=== PATIENT | female | born 1985 | race Caucasian/White ===

== ENCOUNTER 2016-07-20 22:03 | Emergency (ER) | payer OTHER ==
[2016-07-20] MEDS ORDERED: METHOCARBAMOL 500 MG TAB As Ordered ONE (22:49)
[2016-07-20] MEDS ORDERED: IBUPROFEN 600 MG TAB As Ordered ONE (22:49)
[2016-07-20] MEDS ORDERED: NORCO 5/325MG TABLET (BULK) As Ordered ONE (22:50)
--- NOTE | 2016-07-20 22:59 | EDDOCDS ---
Physician Documentation [facility] Name: Janina Dao Age: 31 yrs Sex: Female : 1985 Arrival Date: 07/20/2016 Time: 22:03 Bed TR1 Private MD: MARI LEWIS Disposition: 07/20/16 22:53 Discharged to Home/Self Care. Impression: Strain of muscle and tendon of back wall of thorax - left sided . - Condition is Stable. - Discharge Instructions: Back Pain, Adult, Muscle Strain. - Prescriptions for Ibuprofen 600 mg Oral Tablet - take 1 tablet by ORAL route every 6 hours As needed take with food; 30 tablet. Robaxin 500 mg Oral Tablet - take 2 tablet by ORAL route every 6 hours As needed; 40 tablet. - Medication Reconciliation, Local Pharmacy Hours form. - [facility]; When: Call to arrange an appointment; Reason: Recheck today's complaints, Continuance of care. - Problem is new. - Symptoms are unchanged. Historical: - Allergies: control; - Home Meds: 1. none - PMHx: none; - PSHx: dental implant; ; - Social history: Smoking status: Patient states was never smoker of tobacco. No barriers to communication noted, The patient speaks fluent Japanese. - Family history: Not pertinent. - : The pt / caregiver states he / she is not on anticoagulants. Home medication list is obtained from the patient. - Exposure Risk Screening:: None identified. 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 3 in. (160.02 cm) (R); Pain 10/10; 22:05 Body Mass Index 26.04 (66.68 kg, 160.02 cm) ct3 MDM: 22:48 Ibuprofen 600 mg PO once ordered. mo1 22:48 Methocarbamol 1 grams PO once ordered. mo1 22:48 HYDROcodone-acetaminophen 4 pack- 5 mg-325 mg 1 packets PO Per package directions; mo1 Dispense with patient. 1 po q4h prn for pain ordered. 22:57 Financial registration complete. zo Administered Medications: 22:53 Drug: Ibuprofen 600 mg [ibuprofen 600 mg tablet (1 tabs)] Route: PO; keri :53 Drug: Methocarbamol 1 grams [methocarbamol 500 mg tablet (2 tabs)] Route: PO; [facility] 22:53 Drug: HYDROcodone-acetaminophen 4 pack- 1 packets [hydrocodone 5 mg-acetaminophen 325 jmb mg tablet (1 tabs)] {Co-Signature: rs3 (Debbie Siddiqui RN).} Route: PO; Signatures: Kurtis Martinez Rosemary, RN RN rs3 Lawrence Torres PA PA mo1 Manish Laura RN RN jmb Debbie Siddiqui RN rs3 MTDD
--- NOTE | 2016-07-20 22:59 | EDDOCDS ---
Nurse's Notes [facility] Name: Janina Dao Age: 31 yrs Sex: Female : 1985 Arrival Date: 07/20/2016 Time: 22:03 Bed TR1 Private MD: MARI LEWIS Diagnosis: Strain of muscle and tendon of back wall of thorax-left sided Presentation: 07/20 22:11 Presenting complaint: Patient states: lower back muscle spasm since this evening. no rs3 known injury. Acute neurological deficits are not present. Mechanism of Injury: No Mechanism of Injury. Adult Sepsis Screening: The patient does not have new or worsening altered mentation. Patient's respiratory rate is less than 22. Systolic blood pressure is greater than 100. Patient has a qSOFA score of 0- Negative Sepsis Screen. Suicide/Homicide risk assessment- the patient denies having any suicidal and/or homicidal ideations and does not present with any other emotional, behavioral or mental health complaints. 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 Transition of care: patient was not received from another setting of care. 22:11 Acuity: JANNY Level 4 rs3 22:11 Method Of Arrival: Wheelchair rs3 Triage Assessment: 22:13 General: Appears in no apparent distress. Pain: Location: lumbar area. HIV screening NA rs3 for this visit Offered previously. Musculoskeletal: Reports Pain is 8 out of 10 on a pain scale. 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 none - PMHx: none; - PSHx: dental implant; ; - Social history: Smoking status: Patient states was never smoker of tobacco. No barriers to communication noted, The patient speaks fluent Micronesian. - Family history: Not pertinent. - : The pt / caregiver states he / she is not on anticoagulants. Home medication list is obtained from the patient. - Exposure Risk Screening:: None identified. Screenin:56 Screening information is obtained from the patient. Fall risk: No risks identified. jmb Assistance ADL's: requires no assistance with activities of daily living. Abuse/DV Screen: The patient / caregiver reports he/she is: not in a situation that causes fear, pain or injury. Nutritional screening: No deficits noted. Advance Directives: Currently, there is no health care proxy. There is no active DNR order. There is no living will. There is no Power of Hand Counter. home support is adequate. Assessment: 22:56 General: Patient instructed on discharge instructions. Patient asked if there were any jmb questions regarding discharge, patient stated no. Patient signed discharge instructions. Patient discharged in stable condition. . Vital Signs: 22:05 BP 121 / 60; Pulse 82; Resp 18; Temp 96.9(O); Pulse Ox 100% on R/A; Weight 66.68 kg ct3 (R); Height 5 ft. 3 in. (160.02 cm) (R); Pain 10/10; 22:05 Body Mass Index 26.04 (66.68 kg, 160.02 cm) ct3 Vitals: 22:05 Log In Time: July 20, 2016 at 22:02. ct3 ED Course: 22:05 Patient visited by Zee Walton PCA. ct3 22:05 [facility] is Private Physician. ct3 22:05 Patient moved to Waiting ct3 22:06 Patient moved to Pre RCE ct3 22:12 Triage Initiated rs3 22:37 Patient moved to Triage 2 jmb 22:38 Lawrence Torres PA is PHCP. mo1 22:38 Richard Paul DO is Attending Physician. mo1 22:39 Patient visited by Lawrence Torres PA. mo1 22:53 [facility] is Referral Physician. mo1 22:56 The patient / caregiver is instructed regarding the plan of care and ED course. jmb 22:56 No IV's were initiated during this patient's visit. No procedures done that require jmb assistance. 22:57 Patient moved to TR1 kc3 22:58 Patient visited by Lawrence Torres PA. mo1 Administered Medications: 22:53 Drug: Ibuprofen 600 mg [ibuprofen 600 mg tablet (1 tabs)] Route: PO; jmb 22:53 Drug: Methocarbamol 1 grams [methocarbamol 500 mg tablet (2 tabs)] Route: PO; b 22:53 Drug: HYDROcodone-acetaminophen 4 pack- 1 packets [hydrocodone 5 mg-acetaminophen 325 jmb mg tablet (1 tabs)] {Co-Signature: rs3 (Debbie Siddiqui RN).} Route: PO; Order Results: There are currently no results for this order. Outcome: 22:53 Discharge ordered by Provider. mo1 22:56 Discharge Assessment: Patient awake, alert and oriented x 3. No cognitive and/or jmb functional deficits noted. Patient verbalized understanding of disposition instructions. Patient awake and alert. obeys commands, Oriented to person, place and time. Patient verbalized understanding of disposition instructions. Patient has no functional deficits. patient administered narcotics - no. The following High Risk Discharge criteria are identified: None. Discharged to home ambulatory, with significant other. Condition: stable. Discharge instructions given to patient, Instructed on discharge instructions, follow up and referral plans. medication usage, Demonstrated understanding of instructions, medications, Pt was receptive of discharge instructions/ teaching. Prescriptions given X 2. No special radiology studies were completed. Property sent home with patient. 22:57 Patient left the ED. amada Signatures: Debbie Siddiqui,RANDALL RN rs3 Zee Walton, RADIOTELEGRAPH OPERATOR RADIOTELEGRAPH OPERATOR ct3 Lawrence Torres PA PA mo1 Manish Laura RN RN urszulab Ninoska Yañez,RANDALL RN kc3 Debbie Siddiqui RN rs3 MTDD
--- NOTE | 2016-07-22 23:59 | EDDOCDS ---
Physician Documentation [facility] Name: Janina Dao Age: 31 yrs Sex: Female : 1985 Arrival Date: 07/20/2016 Time: 22:03 Bed TR1 Private MD: MARI LEWIS Disposition: 07/20/16 22:53 Discharged to Home/Self Care. Impression: Strain of muscle and tendon of back wall of thorax - left sided . - Condition is Stable. - Discharge Instructions: Back Pain, Adult, Muscle Strain. - Prescriptions for Ibuprofen 600 mg Oral Tablet - take 1 tablet by ORAL route every 6 hours As needed take with food; 30 tablet. Robaxin 500 mg Oral Tablet - take 2 tablet by ORAL route every 6 hours As needed; 40 tablet. - Medication Reconciliation, Local Pharmacy Hours form. - [facility]; When: Call to arrange an appointment; Reason: Recheck today's complaints, Continuance of care. - Problem is new. - Symptoms are unchanged. Historical: - Allergies: control; - Home Meds: 1. none - PMHx: none; - PSHx: dental implant; ; - Social history: Smoking status: Patient states was never smoker of tobacco. No barriers to communication noted, The patient speaks fluent Spanish. - Family history: Not pertinent. - : The pt / caregiver states he / she is not on anticoagulants. Home medication list is obtained from the patient. - Exposure Risk Screening:: None identified. 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 3 in. (160.02 cm) (R); Pain 10/10; 22:05 Body Mass Index 26.04 (66.68 kg, 160.02 cm) ct3 MDM: 22:48 Ibuprofen 600 mg PO once ordered. mo1 22:48 Methocarbamol 1 grams PO once ordered. mo1 22:48 HYDROcodone-acetaminophen 4 pack- 5 mg-325 mg 1 packets PO Per package directions; mo1 Dispense with patient. 1 po q4h prn for pain ordered. 22:57 Financial registration complete. zo 23:00 [facility] INCLUDES THE [facility] Payment Agreement was scanned into [employer] and attached to record. zo 07/21 11:57 T-Sheet-- Draft Copy was scanned into [employer] and attached to record. gb Administered Medications: 07/20 22:53 Drug: Ibuprofen 600 mg [ibuprofen 600 mg tablet (1 tabs)] Route: PO; jmb 22:53 Drug: Methocarbamol 1 grams [methocarbamol 500 mg tablet (2 tabs)] Route: PO; b 22:53 Drug: HYDROcodone-acetaminophen 4 pack- 1 packets [hydrocodone 5 mg-acetaminophen 325 jmb mg tablet (1 tabs)] {Co-Signature: rs3 (Debbie Siddiqui RN).} Route: PO; Signatures: Philly Garza, Reg Reg gb Kurtis Martinez Rosemary,RANDALL RN rs3 Lawrence Torres PA PA mo1 Manish Laura RN RN jmb Debbie Siddiqui RN rs3 The chart was reviewed and I authenticate all verbal orders and agree with the evaluation and treatment provided.Attachments: 23:00 COUNT INCLUDES THE [facility] Payment Agreement zo 07/21 11:57 T-Sheet-- Draft Copy gb Chart Complete MTDD
--- NOTE | 2016-07-22 23:59 | EDDOCDS ---
Nurse's Notes [facility] Name: Janina Dao Age: 31 yrs Sex: Female : 1985 Arrival Date: 07/20/2016 Time: 22:03 Bed TR1 Private MD: MARI LEWIS Diagnosis: Strain of muscle and tendon of back wall of thorax-left sided Presentation: 07/20 22:11 Presenting complaint: Patient states: lower back muscle spasm since this evening. no rs3 known injury. Acute neurological deficits are not present. Mechanism of Injury: No Mechanism of Injury. Adult Sepsis Screening: The patient does not have new or worsening altered mentation. Patient's respiratory rate is less than 22. Systolic blood pressure is greater than 100. Patient has a qSOFA score of 0- Negative Sepsis Screen. Suicide/Homicide risk assessment- the patient denies having any suicidal and/or homicidal ideations and does not present with any other emotional, behavioral or mental health complaints. 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 Transition of care: patient was not received from another setting of care. 22:11 Acuity: JANNY Level 4 rs3 22:11 Method Of Arrival: Wheelchair rs3 Triage Assessment: 22:13 General: Appears in no apparent distress. Pain: Location: lumbar area. HIV screening NA rs3 for this visit Offered previously. Musculoskeletal: Reports Pain is 8 out of 10 on a pain scale. 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 none - PMHx: none; - PSHx: dental implant; ; - Social history: Smoking status: Patient states was never smoker of tobacco. No barriers to communication noted, The patient speaks fluent Polish. - Family history: Not pertinent. - : The pt / caregiver states he / she is not on anticoagulants. Home medication list is obtained from the patient. - Exposure Risk Screening:: None identified. Screenin:56 Screening information is obtained from the patient. Fall risk: No risks identified. jmb Assistance ADL's: requires no assistance with activities of daily living. Abuse/DV Screen: The patient / caregiver reports he/she is: not in a situation that causes fear, pain or injury. Nutritional screening: No deficits noted. Advance Directives: Currently, there is no health care proxy. There is no active DNR order. There is no living will. There is no Power of Window Machine Operator. home support is adequate. Assessment: 22:56 General: Patient instructed on discharge instructions. Patient asked if there were any jmb questions regarding discharge, patient stated no. Patient signed discharge instructions. Patient discharged in stable condition. . Vital Signs: 22:05 BP 121 / 60; Pulse 82; Resp 18; Temp 96.9(O); Pulse Ox 100% on R/A; Weight 66.68 kg ct3 (R); Height 5 ft. 3 in. (160.02 cm) (R); Pain 10/10; 22:05 Body Mass Index 26.04 (66.68 kg, 160.02 cm) ct3 Vitals: 22:05 Log In Time: July 20, 2016 at 22:02. ct3 ED Course: 22:05 Patient visited by Zee Walton PCA. ct3 22:05 [facility] is Private Physician. ct3 22:05 Patient moved to Waiting ct3 22:06 Patient moved to Pre RCE ct3 22:12 Triage Initiated rs3 22:37 Patient moved to Triage 2 jmb 22:38 Lawrence Torres PA is PHCP. mo1 22:38 Richard Paul DO is Attending Physician. mo1 22:39 Patient visited by Lawrence Torres PA. mo1 22:53 [facility] is Referral Physician. mo1 22:56 The patient / caregiver is instructed regarding the plan of care and ED course. jmb 22:56 No IV's were initiated during this patient's visit. No procedures done that require jmb assistance. 22:57 Patient moved to TR1 kc3 22:58 Patient visited by Lawrence Torres PA. mo1 23:00 [facility] Payment Agreement was scanned into [employer] and attached to record. zo 07/21 11:57 T-Sheet-- Draft Copy was scanned into [employer] and attached to record. gb Administered Medications: 07/20 22:53 Drug: Ibuprofen 600 mg [ibuprofen 600 mg tablet (1 tabs)] Route: PO; jmb 22:53 Drug: Methocarbamol 1 grams [methocarbamol 500 mg tablet (2 tabs)] Route: PO; jmb 22:53 Drug: HYDROcodone-acetaminophen 4 pack- 1 packets [hydrocodone 5 mg-acetaminophen 325 jmb mg tablet (1 tabs)] {Co-Signature: rs3 (Debbie Siddiqui RN).} Route: PO; Order Results: There are currently no results for this order. Outcome: 22:53 Discharge ordered by Provider. mo1 22:56 Discharge Assessment: Patient awake, alert and oriented x 3. No cognitive and/or jmb functional deficits noted. Patient verbalized understanding of disposition instructions. Patient awake and alert. obeys commands, Oriented to person, place and time. Patient verbalized understanding of disposition instructions. Patient has no functional deficits. patient administered narcotics - no. The following High Risk Discharge criteria are identified: None. Discharged to home ambulatory, with significant other. Condition: stable. Discharge instructions given to patient, Instructed on discharge instructions, follow up and referral plans. medication usage, Demonstrated understanding of instructions, medications, Pt was receptive of discharge instructions/ teaching. Prescriptions given X 2. No special radiology studies were completed. Property sent home with patient. 22:57 Patient left the ED. jmb Signatures: Philly Garza, Reg Reg gb Juan, Debbie Alaniz,RANDALL RN rs3 Zee Walton, POLITICAL GEOGRAPHER POLITICAL GEOGRAPHER ct3 Lawrence Torres PA PA mo1 Manish LauraRN RN jmb Ninoska Yañez,RANDALL RN kc3 Debbie Siddiqui RN rs3 Chart Complete MTDD
--- NOTE | 2016-07-22 23:59 | EDDOCDS ---
Physician Documentation [facility] Name: Janina Dao Age: 31 yrs Sex: Female : 1985 Arrival Date: 07/20/2016 Time: 22:03 Bed TR1 Private MD: MARI LEWIS Disposition: 07/20/16 22:53 Discharged to Home/Self Care. Impression: Strain of muscle and tendon of back wall of thorax - left sided . - Condition is Stable. - Discharge Instructions: Back Pain, Adult, Muscle Strain. - Prescriptions for Ibuprofen 600 mg Oral Tablet - take 1 tablet by ORAL route every 6 hours As needed take with food; 30 tablet. Robaxin 500 mg Oral Tablet - take 2 tablet by ORAL route every 6 hours As needed; 40 tablet. - Medication Reconciliation, Local Pharmacy Hours form. - [facility]; When: Call to arrange an appointment; Reason: Recheck today's complaints, Continuance of care. - Problem is new. - Symptoms are unchanged. Historical: - Allergies: control; - Home Meds: 1. none - PMHx: none; - PSHx: dental implant; ; - Social history: Smoking status: Patient states was never smoker of tobacco. No barriers to communication noted, The patient speaks fluent Arabic. - Family history: Not pertinent. - : The pt / caregiver states he / she is not on anticoagulants. Home medication list is obtained from the patient. - Exposure Risk Screening:: None identified. 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 3 in. (160.02 cm) (R); Pain 10/10; 22:05 Body Mass Index 26.04 (66.68 kg, 160.02 cm) ct3 MDM: 22:48 Ibuprofen 600 mg PO once ordered. mo1 22:48 Methocarbamol 1 grams PO once ordered. mo1 22:48 HYDROcodone-acetaminophen 4 pack- 5 mg-325 mg 1 packets PO Per package directions; mo1 Dispense with patient. 1 po q4h prn for pain ordered. 22:57 Financial registration complete. zo 23:00 [facility] Payment Agreement was scanned into [employer] and attached to record. zo 07/21 11:57 T-Sheet-- Draft Copy was scanned into [employer] and attached to record. gb Administered Medications: 07/20 22:53 Drug: Ibuprofen 600 mg [ibuprofen 600 mg tablet (1 tabs)] Route: PO; jmb 22:53 Drug: Methocarbamol 1 grams [methocarbamol 500 mg tablet (2 tabs)] Route: PO; b 22:53 Drug: HYDROcodone-acetaminophen 4 pack- 1 packets [hydrocodone 5 mg-acetaminophen 325 jmb mg tablet (1 tabs)] {Co-Signature: rs3 (Debbie Siddiqui RN).} Route: PO; Signatures: Philly Garza, Reg Reg gb Kurtis Martinez Rosemary,RANDALL RN rs3 Lawrence Torres PA PA mo1 Manish Laura RN RN jmb Debbie Siddiqui RN rs3 The chart was reviewed and I authenticate all verbal orders and agree with the evaluation and treatment provided.Attachments: 23:00 [facility] Payment Agreement zo 07/21 11:57 T-Sheet-- Draft Copy gb Chart Complete MTDD
== END 2016-07-20 22:57 | disposition home or self-care (01) ==
LOC: M ED 22:03
DX: S29.012A Strain of muscle and tendon of back wall of thorax, initial encounter (principal); X58.XXXA Exposure to other specified factors, initial encounter; Y92.89 Other specified places as the place of occurrence of the external cause; Y93.89 Activity, other specified; Y99.8 Other external cause status; Z88.8 Allergy status to other drugs, medicaments and biological substances